=== PATIENT | male | born 1985 | race African-American/Black ===

== ENCOUNTER 2023-04-28 08:36 | Emergency (ER) | payer SELFPAY ==
[~2023-04-28] VITALS: Ht 165.1 cm; Wt 100.0 kg
[2023-04-28 09:36] VITALS: BP 187/105; PULSE 60; RESP 16; TEMP 97.6; O2SAT 100
[2023-04-28] MEDS ORDERED: IBUP-1456 PO (09:48)
== END 2023-04-28 10:01 | disposition home or self-care (01) ==
LOC: ER 08:36
DX: S93.401A Sprain of unspecified ligament of right ankle, initial encounter (principal); R03.0 Elevated blood-pressure reading, without diagnosis of hypertension; X58.XXXA Exposure to other specified factors, initial encounter; Y93.89 Activity, other specified; Y92.89 Other specified places as the place of occurrence of the external cause; Y99.8 Other external cause status
CPT/HCPCS: 73610